=== PATIENT | female | born 1980 | race Two or more races ===

== ENCOUNTER 2024-09-05 05:40 | Day surgery (SDC) | payer OTHER ==
[2024-09-02 09:05] VITALS: BMI 22.3
[2024-09-05] MEDS ORDERED: IBUPROFEN 400 MG TABLET (FP) PO PRN (06:31)
[2024-09-05] MEDS ORDERED: ACETAMINOPHEN 325 MG TABLET (FP) PO PRN (06:31)
[2024-09-05] MEDS ORDERED: ROCURONIUM BROMIDE 50 MG/5 ML SYRINGE ONE (10:23)
[2024-09-05] MEDS ORDERED: MIDAZOLAM HCL 2 MG/2 ML SINGLE DOSE VIAL ONE (10:24)
[2024-09-05] MEDS ORDERED: PROPOFOL 20 ML ONE (10:24)
[2024-09-05] MEDS: ceFAZolin SODIUM 1 GM VIAL IVPB ONE (10:55)
[2024-09-05] MEDS ORDERED: SUGAMMADEX SODIUM 200 MG/2 ML VIAL ONE (11:18)
[2024-09-05] MEDS ORDERED: LACTATED RINGERS SOLUTION 1,000 ML IV SCH (11:45)
[2024-09-05 13:11] VITALS: RESP 18
[2024-09-05 14:09] VITALS: BP 118/70; PULSE 78
[2024-09-05 14:11] VITALS: TEMP 98
== END 2024-09-05 14:25 | disposition home or self-care (01) ==
LOC: JASU-SURG 05:40
PROVIDERS: ATTEND Obstetrics & Gynecology
PROC: 0UB98ZZ Excision of Uterus, Via Natural or Artificial Opening Endoscopic (ICD-10-PCS; principal; 2024-09-05 10:00)
DX: D25.0 Submucous leiomyoma of uterus (principal)
CPT/HCPCS: 81025; 88305-TC; 94760